=== PATIENT | male | born 1985 | race African-American/Black ===

== ENCOUNTER 2022-07-15 13:28 | Inpatient (IN) ==
[2022-07-15] MEDS ORDERED: ONDANSETRON 4 MG/2 ML VIAL ONE (13:44)
[2022-07-15] MEDS ORDERED: ONDANSETRON 4 MG/2 ML VIAL IV STA (13:50)
[2022-07-15] MEDS ORDERED: SODIUM CHLORIDE 0.9% 1,000 ML IV STA (13:50)
[2022-07-15] MEDS ORDERED: HYDROmorphone 1 MG/1 ML SYRINGE IV STA ×3 (13:50→16:55)
[2022-07-15 14:21] LABS: Basophils % 0.3 % (0.0-0.8); Eosinophils # 0.1 10*3/uL (0.0-0.87); Eosinophils % 0.9 % (0.00-10.9); Hematocrit 43.5 VOL% (42.0-52.0); Hemoglobin 19.4 GM/DL (14.0-18.0); Immature Granulocytes % 0.6 %; Immature Granulocytes Absolute 0.09 #; Lymphocytes # 2.8 10*3/uL (1.4-4.0); Mean Corpuscular HGB Conc 44.6 GM/DL (32-36); Mean Corpuscular Volume 82.9 FL (87-102); Mean Platelet Volume 10.3 FL (9.6-12.0); Monocytes # 1.2 10*3/uL (0.11-0.8); Monocytes % 7.7 % (1.7-12.7); Neutrophils % 72.5 % (38.7-73.9); Platelet Count 277 T/CUMM (130-400); Red Blood Count 5.25 MC/CUMM (3.8-5.5); Red Cell Distribution Width 13.7 % (9.3-17.3); White Blood Count 15.7 T/CUMM (4-12)
[2022-07-15 15:01] LABS: RBC,Urine 1 /HPF (0-4); Urine Appearance Clear (Clear); Urine Color Yellow (Yellow)
[2022-07-15 15:02] LABS: Bilirubin,Urine Negative (Negative); Blood, Urine Negative (Negative); Glucose,Urine (UA) >=1000 mg/dL (Negative); Ketones,Urine 40 mg/dL (Negative); Nitrite,Urine Negative (Negative); Protein,Urine 100 mg/dL (Negative); Urine Urobilinogen 0.2 eU/dL (<2.0); Urine pH 8.5 (4.5-8.0)
[2022-07-15 15:50] LABS: Albumin 2.8 G/DL (3.4-5.0); Bilirubin,Total 0.4 MG/DL (0.20-1.00); Osmolality,Calculated 265.8 MOS/KG (273-304); Potassium 3.9 MMOL/L (3.5-5.1)
[2022-07-15 15:51] LABS: Calcium 9.9 MG/DL (8.5-10.1)
[2022-07-15] MEDS ORDERED: INSULIN ASPART PROTAMINE/ASPART 70/30 100 UNIT/ML SUBCUT STA (15:56)
[2022-07-15] MEDS ORDERED: INSULIN LISPRO 100 UNIT/ML SUBCUT STA (15:59)
[2022-07-15 16:32] LABS: Cholesterol 289 MG/DL (50-200); HDL Cholesterol 18 MG/DL (40-60); Risk Ratio 16.06; Triglycerides > 4000 MG/DL (2-150)
[2022-07-15] MEDS ORDERED: LACTATED RINGERS 1,000 ML IV ONE (16:40)
[2022-07-15] MEDS ORDERED: hydrALAZINE 20 MG/1 ML VIAL IV PRN (16:51)
[2022-07-15] MEDS ORDERED: ALBUTEROL 2.5 MG/3 ML NEB RESP TX PRN (16:51)
[2022-07-15] MEDS ORDERED: POTASSIUM CHLORIDE RIDER 10 MEQ/100 ML PREMIX IV PRN (16:54)
[2022-07-15] MEDS ORDERED: MAGNESIUM SULF RIDER 4 GM/100 ML PREMIX IV PRN (16:54)
[2022-07-15] MEDS ORDERED: MAGNESIUM SULF RIDER 2 GM/50 ML PREMIX IV PRN (16:54)
[2022-07-15] MEDS ORDERED: gemfibroziL 600 MG TABLET PO SCH (17:00)
[2022-07-15] MEDS ORDERED: DEXTROSE 10% 250 ML BAG IV PRN ×2 (17:00→17:01)
[2022-07-15] MEDS: LACTATED RINGERS 1,000 ML IV SCH (17:40)
[2022-07-15] MEDS: PIPERACILLIN/TAZOBACTAM 3,375 MG in SODIUM CHLORIDE 0.9% 100 ML IV SCH (17:50)
[2022-07-15] MEDS ORDERED: HEPARIN 5,000 UNIT/1 ML VIAL ONE (18:02)
[2022-07-15] MEDS: HEPARIN 5,000 UNIT/1 ML VIAL SUBCUT SCH ×2 (18:05→20:40)
[2022-07-15] MEDS ORDERED: INFLUENZA VIRUS VACCINE 0.5 ML SYRINGE IM ONE (18:24)
[2022-07-15] MEDS: INSULIN REGULAR DRIP 100 ML IV SCH (19:49)
[2022-07-15] MEDS: ONDANSETRON 4 MG/2 ML VIAL IV PRN (20:40)
[2022-07-15] MEDS: ACETAMINOPHEN 325 MG TABLET PO PRN (20:41)
[2022-07-15] MEDS: OMEGA 3 ACID ETHYL ESTERS 1 GM CAPSULE PO SCH (20:41)
[2022-07-15] MEDS: HYDROmorphone 1 MG/1 ML SYRINGE IV PRN (20:41)
[2022-07-15] MEDS ORDERED: LIDOCAINE 1% 20 ML VIAL MISC INJ ONE (23:30)
[2022-07-16] MEDS: HYDROmorphone 1 MG/1 ML SYRINGE IV PRN ×4 (00:01→18:00)
[2022-07-16] MEDS: ONDANSETRON 4 MG/2 ML VIAL IV PRN ×3 (00:02→21:16)
[2022-07-16] MEDS: LACTATED RINGERS 1,000 ML IV SCH ×3 (01:01→13:00)
[2022-07-16] MEDS: PIPERACILLIN/TAZOBACTAM 3,375 MG in SODIUM CHLORIDE 0.9% 100 ML IV SCH ×3 (01:01→17:19)
[2022-07-16 04:01] LABS: Basophils % 0.2 % (0.0-0.8); Eosinophils # 0.1 10*3/uL (0.0-0.87); Eosinophils % 0.4 % (0.00-10.9); Hematocrit 39.6 VOL% (42.0-52.0); Immature Granulocytes % 0.5 %; Immature Granulocytes Absolute 0.07 #; Lymphocytes # 2.4 10*3/uL (1.4-4.0); Lymphocytes % 17.8 % (21.2-54.2); Mean Corpuscular HGB Conc 34.1 GM/DL (32-36); Mean Corpuscular Volume 84.4 FL (87-102); Mean Platelet Volume 11.2 FL (9.6-12.0); Monocytes % 7.2 % (1.7-12.7); NRBC # 0.09 10*3/uL; Neutrophils % 73.9 % (38.7-73.9); Platelet Count 314 T/CUMM (130-400); Red Blood Count 4.69 MC/CUMM (3.8-5.5); Red Cell Distribution Width 14.5 % (9.3-17.3); White Blood Count 13.4 T/CUMM (4-12)
[2022-07-16 04:05] LABS: Hemoglobin 13.5 GM/DL (14.0-18.0)
[2022-07-16 04:39] LABS: Albumin 3.1 G/DL (3.4-5.0); Bilirubin,Total 0.6 MG/DL (0.20-1.00); Calcium 9.1 MG/DL (8.5-10.1); Osmolality,Calculated 270.2 MOS/KG (273-304); Potassium 4.3 MMOL/L (3.5-5.1)
[2022-07-16] MEDS ORDERED: DEXTROSE 5% LACTATED RINGERS 1,000 ML IV SCH (09:00)
[2022-07-16] MEDS ORDERED: PANTOPRAZOLE 40 MG TABLET PO SCH (09:00)
[2022-07-16] MEDS ORDERED: PANTOPRAZOLE 40 MG VIAL IV SCH (09:00)
[2022-07-16] MEDS: HEPARIN 5,000 UNIT/1 ML VIAL SUBCUT SCH ×2 (09:36→20:10)
[2022-07-16] MEDS: FENOFIBRATE 160 MG TABLET PO SCH (09:37)
[2022-07-16] MEDS: OMEGA 3 ACID ETHYL ESTERS 1 GM CAPSULE PO SCH ×2 (09:37→20:11)
[2022-07-16] MEDS: INSULIN REGULAR DRIP 100 ML IV SCH (10:45)
[2022-07-16] MEDS: LORazepam 1 MG TABLET PO PRN ×2 (12:12→21:16)
[2022-07-16] MEDS: INSULIN GLARGINE 100 UNIT/ML SUBCUT SCH (12:12)
[2022-07-16] MEDS: LOSARTAN 25 MG TABLET PO SCH (12:12)
[2022-07-16] MEDS: INSULIN LISPRO 100 UNIT/ML SUBCUT SCH ×2 (15:45→20:10)
[2022-07-16] MEDS: ACETAMINOPHEN 325 MG TABLET PO PRN (18:00)
[2022-07-16] MEDS ORDERED: HYDROmorphone 1 MG/1 ML SYRINGE IV ONE (18:33)
[2022-07-17] MEDS: LACTATED RINGERS 1,000 ML IV SCH ×3 (00:05→22:14)
[2022-07-17] MEDS: INSULIN LISPRO 100 UNIT/ML SUBCUT SCH ×6 (00:05→22:19)
[2022-07-17] MEDS: PIPERACILLIN/TAZOBACTAM 3,375 MG in SODIUM CHLORIDE 0.9% 100 ML IV SCH ×3 (02:35→18:03)
[2022-07-17 05:25] LABS: Basophils % 0.4 % (0.0-0.8); Eosinophils # 0.2 10*3/uL (0.0-0.87); Eosinophils % 2.3 % (0.00-10.9); Hematocrit 40.1 VOL% (42.0-52.0); Hemoglobin 13.7 GM/DL (14.0-18.0); Immature Granulocytes % 0.5 %; Immature Granulocytes Absolute 0.04 #; Lymphocytes # 1.9 10*3/uL (1.4-4.0); Mean Corpuscular HGB Conc 34.2 GM/DL (32-36); Mean Corpuscular Volume 84.2 FL (87-102); Mean Platelet Volume 10.4 FL (9.6-12.0); Monocytes # 0.6 10*3/uL (0.11-0.8); Monocytes % 7.2 % (1.7-12.7); Neutrophils % 66.6 % (38.7-73.9); Platelet Count 181 T/CUMM (130-400); Red Blood Count 4.76 MC/CUMM (3.8-5.5); White Blood Count 8.2 T/CUMM (4-12)
[2022-07-17 06:07] LABS: Albumin 2.9 G/DL (3.4-5.0); Bilirubin,Total 0.6 MG/DL (0.20-1.00); Calcium 9.4 MG/DL (8.5-10.1); Osmolality,Calculated 269.2 MOS/KG (273-304); Potassium 3.9 MMOL/L (3.5-5.1); Total Protein 6.9 G/DL (6.4-8.2)
[2022-07-17] MEDS: FENOFIBRATE 160 MG TABLET PO SCH (10:53)
[2022-07-17] MEDS: LOSARTAN 25 MG TABLET PO SCH (10:53)
[2022-07-17] MEDS: ASPIRIN EC 325 MG TABLET PO SCH (10:53)
[2022-07-17] MEDS: OMEGA 3 ACID ETHYL ESTERS 1 GM CAPSULE PO SCH ×2 (10:53→21:18)
[2022-07-17] MEDS: INSULIN GLARGINE 100 UNIT/ML SUBCUT SCH (11:41)
[2022-07-17] MEDS: HEPARIN 5,000 UNIT/1 ML VIAL SUBCUT SCH ×2 (11:41→21:18)
[2022-07-17] MEDS: ACETAMINOPHEN 325 MG TABLET PO PRN (12:19)
[2022-07-17] MEDS: HYDROmorphone 1 MG/1 ML SYRINGE IV PRN ×2 (17:01→21:19)
[2022-07-17] MEDS ORDERED: NIACIN ER 500 MG TABLET PO SCH (21:00)
[2022-07-17] MEDS: ZALEPLON 5 MG CAPSULE PO PRN (21:18)
[2022-07-18] MEDS: PIPERACILLIN/TAZOBACTAM 3,375 MG in SODIUM CHLORIDE 0.9% 100 ML IV SCH ×2 (01:32→10:02)
[2022-07-18] MEDS: INSULIN LISPRO 100 UNIT/ML SUBCUT SCH ×6 (01:32→20:32)
[2022-07-18 04:40] LABS: Basophils % 0.5 % (0.0-0.8); Eosinophils # 0.2 10*3/uL (0.0-0.87); Eosinophils % 4.1 % (0.00-10.9); Hematocrit 40.3 VOL% (42.0-52.0); Hemoglobin 13.4 GM/DL (14.0-18.0); Immature Granulocytes % 0.5 %; Immature Granulocytes Absolute 0.03 #; Lymphocytes # 2.1 10*3/uL (1.4-4.0); Mean Corpuscular HGB Conc 33.3 GM/DL (32-36); Mean Corpuscular Volume 84.1 FL (87-102); Mean Platelet Volume 10.1 FL (9.6-12.0); Monocytes # 0.4 10*3/uL (0.11-0.8); Monocytes % 7.9 % (1.7-12.7); Platelet Count 214 T/CUMM (130-400); Red Blood Count 4.79 MC/CUMM (3.8-5.5); White Blood Count 5.6 T/CUMM (4-12)
[2022-07-18 05:12] LABS: Calcium 8.8 MG/DL (8.5-10.1); Potassium 3.9 MMOL/L (3.5-5.1); Thyroid Stimulating Hormone 3.88 uIU/ml (0.358-3.74)
[2022-07-18] MEDS: HYDROmorphone 1 MG/1 ML SYRINGE IV PRN ×2 (05:52→12:19)
[2022-07-18] MEDS ORDERED: DEXTROSE 50% 25 GM/50 ML VIAL IV PRN (07:24)
[2022-07-18] MEDS ORDERED: GLUCAGON 1 MG VIAL IM PRN (07:24)
[2022-07-18] MEDS: INSULIN GLARGINE 100 UNIT/ML SUBCUT SCH (09:49)
[2022-07-18] MEDS: ASPIRIN EC 325 MG TABLET PO SCH (09:50)
[2022-07-18] MEDS: LOSARTAN 25 MG TABLET PO SCH (09:50)
[2022-07-18] MEDS: HEPARIN 5,000 UNIT/1 ML VIAL SUBCUT SCH ×2 (09:50→20:33)
[2022-07-18] MEDS: OMEGA 3 ACID ETHYL ESTERS 1 GM CAPSULE PO SCH ×2 (09:50→20:33)
[2022-07-18] MEDS: FENOFIBRATE 160 MG TABLET PO SCH (09:50)
[2022-07-18] MEDS: LACTATED RINGERS 1,000 ML IV SCH ×3 (10:07→17:00)
[2022-07-18] MEDS: BACILLUS COAGULANS CAPLET PO SCH (14:00)
[2022-07-18] MEDS: NIACIN ER 500 MG TABLET PO SCH (20:32)
[2022-07-18] MEDS: ZALEPLON 5 MG CAPSULE PO PRN (20:32)
[2022-07-19] MEDS: INSULIN LISPRO 100 UNIT/ML SUBCUT SCH ×6 (01:01→20:39)
[2022-07-19 04:49] LABS: Basophils % 0.2 % (0.0-0.8); Eosinophils # 0.3 10*3/uL (0.0-0.87); Eosinophils % 6.6 % (0.00-10.9); Hematocrit 40.3 VOL% (42.0-52.0); Hemoglobin 13.9 GM/DL (14.0-18.0); Immature Granulocytes % 0.6 %; Immature Granulocytes Absolute 0.03 #; Lymphocytes # 2.1 10*3/uL (1.4-4.0); Lymphocytes % 44.2 % (21.2-54.2); Mean Corpuscular HGB Conc 34.5 GM/DL (32-36); Mean Corpuscular Volume 85.2 FL (87-102); Mean Platelet Volume 10.4 FL (9.6-12.0); Monocytes # 0.4 10*3/uL (0.11-0.8); Monocytes % 7.9 % (1.7-12.7); Neutrophils % 40.5 % (38.7-73.9); Platelet Count 255 T/CUMM (130-400); Red Blood Count 4.73 MC/CUMM (3.8-5.5); Red Cell Distribution Width 13.9 % (9.3-17.3); White Blood Count 4.7 T/CUMM (4-12)
[2022-07-19 06:19] LABS: Calcium 8.6 MG/DL (8.5-10.1); Osmolality,Calculated 278.8 MOS/KG (273-304); Potassium 3.9 MMOL/L (3.5-5.1)
[2022-07-19] MEDS: LACTATED RINGERS 1,000 ML IV SCH (09:15)
[2022-07-19] MEDS: INSULIN GLARGINE 100 UNIT/ML SUBCUT SCH (09:16)
[2022-07-19] MEDS: OMEGA 3 ACID ETHYL ESTERS 1 GM CAPSULE PO SCH ×2 (09:16→20:39)
[2022-07-19] MEDS: BACILLUS COAGULANS CAPLET PO SCH (09:16)
[2022-07-19] MEDS: FENOFIBRATE 160 MG TABLET PO SCH (09:16)
[2022-07-19] MEDS: ASPIRIN EC 325 MG TABLET PO SCH (09:16)
[2022-07-19] MEDS: HEPARIN 5,000 UNIT/1 ML VIAL SUBCUT SCH ×2 (09:16→20:39)
[2022-07-19] MEDS: LOSARTAN 25 MG TABLET PO SCH (09:16)
[2022-07-19] MEDS: HYDROmorphone 1 MG/1 ML SYRINGE IV PRN (09:46)
[2022-07-19] MEDS: ONDANSETRON 4 MG/2 ML VIAL IV PRN (10:07)
[2022-07-19] MEDS: NIACIN ER 500 MG TABLET PO SCH (20:39)
[2022-07-20] MEDS: INSULIN LISPRO 100 UNIT/ML SUBCUT SCH ×6 (00:47→21:18)
[2022-07-20 05:24] LABS: Basophils % 0.7 % (0.0-0.8); Eosinophils # 0.3 10*3/uL (0.0-0.87); Eosinophils % 4.6 % (0.00-10.9); Hemoglobin 13.8 GM/DL (14.0-18.0); Immature Granulocytes % 0.7 %; Immature Granulocytes Absolute 0.04 #; Lymphocytes # 2.4 10*3/uL (1.4-4.0); Lymphocytes % 39.9 % (21.2-54.2); Mean Corpuscular HGB Conc 34.5 GM/DL (32-36); Mean Platelet Volume 9.8 FL (9.6-12.0); Monocytes # 0.4 10*3/uL (0.11-0.8); Neutrophils % 47.1 % (38.7-73.9); Platelet Count 290 T/CUMM (130-400); Red Blood Count 4.65 MC/CUMM (3.8-5.5); Red Cell Distribution Width 13.7 % (9.3-17.3); White Blood Count 6.1 T/CUMM (4-12)
[2022-07-20 06:26] LABS: Calcium 8.6 MG/DL (8.5-10.1); Osmolality,Calculated 276.2 MOS/KG (273-304); Potassium 3.9 MMOL/L (3.5-5.1)
[2022-07-20] MEDS: LOSARTAN 25 MG TABLET PO SCH (08:58)
[2022-07-20] MEDS: FENOFIBRATE 160 MG TABLET PO SCH (08:58)
[2022-07-20] MEDS: ASPIRIN EC 325 MG TABLET PO SCH (08:58)
[2022-07-20] MEDS: BACILLUS COAGULANS CAPLET PO SCH (08:58)
[2022-07-20] MEDS: OMEGA 3 ACID ETHYL ESTERS 1 GM CAPSULE PO SCH ×2 (08:59→21:18)
[2022-07-20] MEDS ORDERED: INSULIN GLARGINE 100 UNIT/ML SUBCUT SCH (09:00)
[2022-07-20] MEDS: HEPARIN 5,000 UNIT/1 ML VIAL SUBCUT SCH ×2 (09:00→21:34)
[2022-07-20] MEDS: ROSUVASTATIN 10 MG TABLET PO SCH (11:22)
[2022-07-20] MEDS: INSULIN NPH 100 UNIT/ML SUBCUT SCH (17:27)
[2022-07-20] MEDS: LACTATED RINGERS 1,000 ML IV SCH ×2 (17:30→17:31)
[2022-07-20] MEDS: NIACIN ER 500 MG TABLET PO SCH (21:18)
[2022-07-20] MEDS: ZALEPLON 5 MG CAPSULE PO PRN (21:19)
[2022-07-21] MEDS: INSULIN LISPRO 100 UNIT/ML SUBCUT SCH ×4 (01:38→11:55)
[2022-07-21 06:10] LABS: Osmolality,Calculated 277.8 MOS/KG (273-304); Potassium 3.9 MMOL/L (3.5-5.1)
[2022-07-21 06:11] LABS: Basophils % 0.4 % (0.0-0.8); Eosinophils # 0.3 10*3/uL (0.0-0.87); Eosinophils % 3.5 % (0.00-10.9); Hematocrit 41.9 VOL% (42.0-52.0); Hemoglobin 14.2 GM/DL (14.0-18.0); Immature Granulocytes Absolute 0.07 #; Lymphocytes % 42.1 % (21.2-54.2); Mean Corpuscular HGB Conc 33.9 GM/DL (32-36); Mean Corpuscular Volume 83.6 FL (87-102); Mean Platelet Volume 9.8 FL (9.6-12.0); Monocytes # 0.6 10*3/uL (0.11-0.8); Monocytes % 8.3 % (1.7-12.7); Neutrophils % 44.7 % (38.7-73.9); Platelet Count 314 T/CUMM (130-400); Red Blood Count 5.01 MC/CUMM (3.8-5.5); Red Cell Distribution Width 13.7 % (9.3-17.3); White Blood Count 7.2 T/CUMM (4-12)
[2022-07-21] MEDS: ROSUVASTATIN 10 MG TABLET PO SCH (08:57)
[2022-07-21] MEDS: OMEGA 3 ACID ETHYL ESTERS 1 GM CAPSULE PO SCH (08:57)
[2022-07-21] MEDS: ASPIRIN EC 325 MG TABLET PO SCH (08:57)
[2022-07-21] MEDS: LOSARTAN 25 MG TABLET PO SCH (08:58)
[2022-07-21] MEDS: HEPARIN 5,000 UNIT/1 ML VIAL SUBCUT SCH (08:58)
[2022-07-21] MEDS: FENOFIBRATE 160 MG TABLET PO SCH (08:58)
[2022-07-21] MEDS: BACILLUS COAGULANS CAPLET PO SCH (08:58)
[2022-07-21] MEDS: INSULIN NPH 100 UNIT/ML SUBCUT SCH (09:00)
[2022-07-21 12:07] VITALS: BP 116/70
== END 2022-07-21 14:20 | disposition home or self-care (01) | DRG 638 ==
LOC: N.ED 13:28 → N.EDINP 16:51 → SUATTDRO 16:51 → N.ICU 18:03 → N.5E 07-16 17:15
PROVIDERS: ADMIT Family Medicine; ATTEND Hospitalist